=== PATIENT | male | born 1970 | race Caucasian/White ===

== ENCOUNTER 2022-12-21 16:14 | Emergency (ER) | payer SELFPAY ==
[~2022-12-21] VITALS: Ht 180.3 cm; Wt 91.0 kg
[2022-12-21 16:23] VITALS: BP 139/81; PULSE 95; RESP 16; TEMP 97.9; O2SAT 99
[2022-12-21 17:41] LABS: BASOPHILS % 0.9 % (0.0-2.0); EOSINOPHILS % 2.3 % (0.0-5.0); HEMATOCRIT. 41.6 % (42.0-52.0); HEMOGLOBIN. 14.5 g/dL (14.0-18.0); LYMPHOCYTES % 27.1 % (20.0-50.0); MEAN CORPUSCULAR HGB CONC 34.8 g/dL (31.0-37.0); MEAN CORPUSCULAR VOLUME 92.1 fL (80.0-94.0); MEAN PLATELET VOLUME 7.7 fl (7.4-10.4); MONOCYTES % 9.4 % (2.0-8.0); NEUTROPHILS % 60.3 % (40.0-76.0); PLATELET 280 x1000/uL (130-400); RED BLOOD CELL COUNT 4.52 mill/uL (4.7-6.1); RED CELL DISTRIBUTION WIDTH 12.3 % (11.6-14.6); WHITE BLOOD COUNT 7.6 x1000/uL (4.5-11.0)
[2022-12-21 17:49] LABS: DIFFERENTIAL COMMENT 1
[2022-12-21 17:54] LABS: CHLORIDE 99 mEq/L (98-107); INDEX HEMOLYSI 1 (1-3); INDEX ICTERIC 1 (1-4); INDEX LIPEMIC 1 (1-3); POTASSIUM 3.7 mEq/L (3.5-5.1); SODIUM 133 mEq/L (136-145)
[2022-12-21 17:56] LABS: ALBUMIN 3.8 g/dL (3.4-5.0)
[2022-12-21 18:11] LABS: ALANINE AMINOTRANSFERASE 44 IU/L (13-61); ASPARTATE AMINOTRANSFERASE 20 IU/L (15-37); BILIRUBIN TOTAL 0.4 mg/dL (0.1-1.0); CALCIUM 8.9 mg/dL (8.5-10.1); CARBON DIOXIDE 29 mEq/L (21-32); CREATININE 0.9 mg/dL (0.6-1.3); GLUCOSE 130 mg/dL (70-105); PROTEIN TOTAL 7.7 g/dL (6.0-8.3); UREA NITROGEN BLOOD 20 mg/dL (7-21)
[2022-12-21 18:48] LABS: TROPONIN I HIGH SENSITIVITY < 4 ng/L (<78)
== END 2022-12-21 22:41 | disposition home or self-care (01) ==
LOC: ER 16:14
DX: R68.89 Other general symptoms and signs (principal)
CPT/HCPCS: 36415; 71045; 80053; 84484; 85025; 93005; 99285